=== PATIENT | female | born 1980 | race Caucasian/White ===

== ENCOUNTER 2022-11-07 15:32 | Emergency (ER) | payer MEDICAID ==
[~2022-11-07] VITALS: Ht 160 cm; Wt 73.9 kg
[2022-11-07 15:39] VITALS: BP_SYST 128
--- NOTE | 2022-11-07 15:44 | NUR ---
Patient to ER bed 02 to gown for evaluation. Side rails up.
[2022-11-07] MEDS ORDERED: KETOROLAC TROMETHAMINE 60 MG/2 ML VIAL IM ONE (16:15)
[2022-11-07] MEDS ORDERED: HYDROcodone/ACETAMIN 10-325 MG TAB PO ONE (16:15)
--- NOTE | 2022-11-07 16:20 | NUR ---
ASSUMED CARE OF A&OX 4 AND AMBULATORY PT WHO REPORTS 4 DAYS OF SEVERE AND SPASMODIC HEADACHE. PT REPORTS VISITING THE URGENT CARE YESTERDAY AND FILLING A PRESCRIPTION FOR MELOXICAM AND BACLOFEN WHICH IS NOT WORKING TO RELIEVE THE PAIN. PT DENIES LIGHT SENSITIVITY, DIZZINESS, N/V/D, AND UNSTEADY GAIT.
[2022-11-07 16:25] LABS: BASOPHILS % (AUTO) 0.5 % (0.0-2.0); EOSINOPHILS # (AUTO) 0.1 K/uL (0.0-0.4); EOSINOPHILS % (AUTO) 1.4 % (0.0-4.0); HEMATOCRIT 36.7 % (36-48); HEMOGLOBIN 12.7 g/dL (12.0-16.0); LYMPHOCYTES # (AUTO) 2.1 K/uL (1.0-5.5); LYMPHOCYTES % (AUTO) 34.1 % (20.5-51.5); MEAN CORPUSCULAR HEMOGLOBIN 31 pg (27-31); MEAN CORPUSCULAR HGB CONC 35 % (32-36); MEAN CORPUSCULAR VOLUME 88 fL (79.0-98.0); MONOCYTES # (AUTO) 0.6 K/uL (0.0-1.0); MONOCYTES % (AUTO) 9.9 % (1.7-9.3); NEUTROPHILS # (AUTO) 3.3 K/uL (1.8-7.7); NEUTROPHILS % (AUTO) 54.1 % (40.0-70.0); PLATELET COUNT (AUTO) 257 K/uL (130-430); RED BLOOD CELL COUNT(AUTO) 4.15 MIL/uL (4.2-6.2); RED CELL DISTRIBUTION WIDTH 13.1 % (9.0-15.0); WHITE BLOOD COUNT (AUTO) 6.2 K/uL (4.8-10.8)
--- NOTE | 2022-11-07 16:30 | NUR ---
MD JONAS AT BEDSIDE EVALUATING PT.
[2022-11-07 16:34] LABS: ERYTHROCYTE SEDIMENTATION RATE 2 MM/HR (0-20)
[2022-11-07 16:38] LABS: ANION GAP 6 (5-15); CALCIUM 8.6 mg/dL (8.4-11.0); CHLORIDE 107 mmol/L (98-107); CREATININE 0.81 mg/dL (0.55-1.30); GFR AFRICAN AMERICAN 100 mL/min (>90); GLUCOSE 109 mg/dL (70-99); UREA NITROGEN, BLOOD 11 mg/dL (8-21)
[2022-11-07 16:43] LABS: ALANINE AMINOTRANSFERASE 23 U/L (12-78); ALBUMIN 3.5 g/dL (3.4-4.8); ASPARTATE AMINOTRANSFERASE 12 U/L (10-37); TOTAL BILIRUBIN 0.2 mg/dL (0.0-1.0)
[2022-11-07 16:44] LABS: C-REACTIVE PROTEIN QUANT < 0.2 mg/dL (0-0.5)
--- NOTE | 2022-11-07 17:10 | NUR ---
PT REPORTS THE PAIN MEDICATION DID DULL THE PAIN BUT REPORTS THE HEADACHE IS STILL THERE BUT TOLERABLE. PT REMAINS A&OX 4 WITH CLEAR SPEECH AND PATENT AIRWAY. PT PENDING FURTHER RESULTS.
--- NOTE | 2022-11-07 17:30 | NUR ---
PT REFUSED URINE BECAUSE SHE STATED, "IT'S ABSOLUTELY IMPOSSIBLE BECAUSE I HAVE HAD 3 TEST IN THE LAST 2 WEEKS AND HAVEN'T BEEN WITH ANYONE FOR OVER 2 YEARS.
[2022-11-07] MEDS ORDERED: IBUP-1969 PO (17:49)
[2022-11-07] MEDS ORDERED: TRAM50TA2 PO (17:49)
--- NOTE | 2022-11-07 18:00 | NUR ---
PT REMAINS STABLE AND A&OX 4 WITH CLEAR SPEECH AND PATENT AIRWAY AND SHE REPORTS AN IMPROVEMENT IN HER HEADACHE BUT IT HASN'T COMPLETELY RESOLVED. PT PENDING DC.
[2022-11-07] MEDS ORDERED: HYDR-3917 PO (18:13)
[2022-11-07 18:16] VITALS: BP_SYST 114
--- NOTE | 2022-11-07 18:16 | NUR ---
Patient given written and verbal discharge instructions and verbalizes understanding. ER MD discussed with patient the results and treatment provided. Patient in stable condition. ID arm band removed. Rx'S SENT TO PHARMACY. Patient educated on pain management and to follow up with PMD. Opportunity for questions provided and answered. Medication side effect fact sheet provided. PT AMBULATED OUT OF ED WITH A STEADY GAIT.
== END 2022-11-07 18:16 | disposition home or self-care (01) ==
LOC: SED 15:32
DX: R51.9 Headache, unspecified (principal); R11.0 Nausea; F17.200 Nicotine dependence, unspecified, uncomplicated; Z88.0 Allergy status to penicillin; Z88.1 Allergy status to other antibiotic agents; Z91.041 Radiographic dye allergy status; Z79.899 Other long term (current) drug therapy
CPT/HCPCS: 99285; 70450; 80053; 84703; 85025; 85651; 86140; 36415; 76376; 96372; J1885